=== PATIENT | male | born 1960 | race Caucasian/White ===

== ENCOUNTER 2018-01-08 19:35 | Emergency (ER) | payer SELFPAY ==
[~2018-01-08] VITALS: Ht 185.4 cm; Wt 113.4 kg
[2018-01-08] MEDS ORDERED: Tranexamic Acid(Epistaxis Use) TOPIC ONE ×2 (19:45)
[2018-01-08 20:00] VITALS: BP 126/79
--- NOTE | 2018-01-08 20:02 | Emergency Room Report ---
History of Present Illness General Chief Complaint: Nosebleed Source: Patient Present Illness HPI Patient 57-year-old male who presented after increased nasal bleeding. Patient reports having a right-sided nasal bleeding which began after blowing his nose. He reports having prior history of nosebleeds as a child but has not had any for many years. He reports taking aspirin intermittently. He denies any anticoagulant use. He denies feeling dizzy or lightheaded. He denies other locations of bleeding. The patient onset of symptoms approximately 4 PM. Patient had attempted to apply pressure without any resolution. Allergies: Coded Allergies: No Known Allergies (Unverified , 01/08/18) Patient History Past Medical History: see triage record Reviewed Nursing Documentation: PMH: Agreed; PSxH: Agreed Nursing Documentation-PMH Past Medical History: No Stated History Review of Systems All Other Systems: negative except mentioned in HPI Physical Exam Vital Signs Date Time Temp Pulse Resp B/P (MAP) Pulse Ox O2 Delivery O2 Flow Rate FiO2 01/08/18 19:36 98.1 90 18 126/79 96 Room Air Sp02 EP Interpretation: reviewed, normal General Appearance: normal inspection, well appearing, no apparent distress, alert, GCS 15 Head: atraumatic ENT: normal ENT inspection, hearing grossly normal, normal voice, other - anterior nasal bleeding to septum of right nare Neck: normal inspection, full range of motion, supple, no bony tend Respiratory: normal inspection, lungs clear, normal breath sounds, no respiratory distress, no retraction, no wheezing Cardiovascular #1: regular rate, rhythm, no edema Gastrointestinal: normal inspection, normal bowel sounds, non tender, soft, no guarding, no hernia Genitourinary: no CVA tenderness Musculoskeletal: normal inspection, back normal, normal range of motion Neurologic: normal inspection, alert, responsive, speech normal Psychiatric: normal inspection, judgement/insight normal, mood/affect normal Skin: normal inspection, normal color, no rash Medical Decision Making Diagnostic Impression: Primary Impression: Epistaxis ER Course Patient presented for nosebleed. Differential diagnosis included was not limited to anemia, coagulopathy, posterior epistaxis, among others.Because of complexity of patient's case laboratory testing and imaging studies were ordered. Patient was noted to have the initial bleeding for several hours. The patient was noted to have some improvement after internasal TXA. The patient continued to have some bleeding and a anterior nasal pack was placed in the right naris. The patient was noted to have the minimal bleeding subsequently. The patient was observed in the emergency department and had no recurrence of bleeding. The patient given prescription for antibiotics. He is advised to recheck for packing removal. Labs Test 01/08/18 20:15 White Blood Count 11.5 K/UL (4.8-10.8) Red Blood Count 4.87 M/UL (4.70-6.10) Hemoglobin 16.4 G/DL (14.2-18.0) Hematocrit 44.2 % (42.0-52.0) Mean Corpuscular Volume 91 FL (80-99) Mean Corpuscular Hemoglobin 33.8 PG (27.0-31.0) Mean Corpuscular Hemoglobin Concent 37.2 G/DL (32.0-36.0) Red Cell Distribution Width 10.5 % (11.6-14.8) Platelet Count 223 K/UL (150-450) Mean Platelet Volume 7.2 FL (6.5-10.1) Neutrophils (%) (Auto) 74.2 % (45.0-75.0) Lymphocytes (%) (Auto) 14.4 % (20.0-45.0) Monocytes (%) (Auto) 8.6 % (1.0-10.0) Eosinophils (%) (Auto) 1.3 % (0.0-3.0) Basophils (%) (Auto) 1.5 % (0.0-2.0) Prothrombin Time 11.3 SEC (9.30-11.50) Prothromb Time International Ratio 1.1 (0.9-1.1) Activated Partial Thromboplast Time 27 SEC (23-33) Sodium Level 141 MMOL/L (136-145) Potassium Level 4.3 MMOL/L (3.5-5.1) Chloride Level 105 MMOL/L (98-107) Carbon Dioxide Level 28 MMOL/L (21-32) Anion Gap 8 mmol/L (5-15) Blood Urea Nitrogen 26 mg/dL (7-18) Creatinine 1.1 MG/DL (0.55-1.30) Estimat Glomerular Filtration Rate > 60 mL/min (>60) Glucose Level 148 MG/DL (74-106) Calcium Level 8.9 MG/DL (8.5-10.1) Total Bilirubin 0.5 MG/DL (0.2-1.0) Aspartate Amino Transf (AST/SGOT) 24 U/L (15-37) Alanine Aminotransferase (ALT/SGPT) 46 U/L (12-78) Alkaline Phosphatase 75 U/L (46-116) Total Protein 7.8 G/DL (6.4-8.2) Albumin 3.9 G/DL (3.4-5.0) Globulin 3.9 g/dL Albumin/Globulin Ratio 1.0 (1.0-2.7) Last Vital Signs Date Time Temp Pulse Resp B/P (MAP) Pulse Ox O2 Delivery O2 Flow Rate FiO2 01/08/18 19:36 98.1 90 18 126/79 96 Room Air Status: improved Disposition: HOME, SELF-CARE Condition: Stable Scripts Amoxicillin (AMOXICILLIN) 500 Mg Tablet 500 MG PO THREE TIMES A DAY, #21 TAB Prov: Lion Tim MD 01/08/18 Lion Tim MD Jan 08, 2018 20:02
[2018-01-08 20:39] LABS: ANION GAP 8 mmol/L (5-15); BLOOD UREA NITROGEN 26 mg/dL (7-18); CALCIUM 8.9 MG/DL (8.5-10.1); CARBON DIOXIDE 28 MMOL/L (21-32); CHLORIDE 105 MMOL/L (98-107); CREATININE 1.1 MG/DL (0.55-1.30); POTASSIUM 4.3 MMOL/L (3.5-5.1); SODIUM 141 MMOL/L (136-145)
[2018-01-08 20:44] LABS: ALANINE AMINOTRANSFERASE 46 U/L (12-78); ALBUMIN 3.9 G/DL (3.4-5.0); ALKALINE PHOSPHATASE 75 U/L (46-116); ASPARTATE AMINO TRANSFERASE 24 U/L (15-37); BILIRUBIN,TOTAL 0.5 MG/DL (0.2-1.0)
[2018-01-08 20:52] LABS: BASOPHILS % (AUTO) 1.5 % (0.0-2.0); EOSINOPHILS % (AUTO) 1.3 % (0.0-3.0); HEMATOCRIT 44.2 % (42.0-52.0); HEMOGLOBIN 16.4 G/DL (14.2-18.0); LYMPHOCYTES % (AUTO) 14.4 % (20.0-45.0); MEAN CORPUSCULAR VOLUME 91 FL (80-99); MONOCYTES % (AUTO) 8.6 % (1.0-10.0); NEUTROPHILS % (AUTO) 74.2 % (45.0-75.0); PLATELET COUNT 223 K/UL (150-450); RED BLOOD COUNT 4.87 M/UL (4.70-6.10); RED CELL DISTRIBUTION WIDTH 10.5 % (11.6-14.8); WHITE BLOOD COUNT 11.5 K/UL (4.8-10.8)
[2018-01-08 20:59] LABS: INR 1.1 (0.9-1.1)
[2018-01-08] MEDS ORDERED: AMOXICILLIN500 M1 PO (21:01)
[2018-01-08 21:38] VITALS: BP 149/90
== END 2018-01-08 21:08 | disposition home or self-care (01) ==
LOC: EMR 20:08
DX: R04.0 Epistaxis (principal)
CPT/HCPCS: 36415; 80053; 85025; 85610; 85730; 99284

== ENCOUNTER 2018-01-10 07:43 | Emergency (ER) | payer BC ==
[~2018-01-10] VITALS: Ht 185.4 cm; Wt 108.9 kg
[~2018-01-10 07:43] MED LIST: AMOXICILLIN500 M1 PO
[2018-01-10 07:58] VITALS: BP 136/93
[2018-01-10 08:19] VITALS: BP 136/93
--- NOTE | 2018-01-10 11:35 | Emergency Room Report ---
History of Present Illness General Chief Complaint: Nosebleed Source: Patient Present Illness HPI 57-year-old male presents ED for evaluation. Patient is here for nasal packing removal. Episode of epistaxis was seen in ER on 01/07. Rhino Rocket was placed in right nostril and patient was discharged with amoxicillin. Patient states he is continuing the medications as directed. Denies any repeat epistaxis. States that the area is very dry and he often uses nasal saline spray. Denies using blood thinners. Denies any pain. Denies any fevers or chills. No other aggravating relieving factors. Denies any other associated symptoms Allergies: Coded Allergies: No Known Allergies (Unverified , 01/08/18) Patient History Past Medical History: none Past Surgical History: none Pertinent Family History: none Social History: Denies: smoking, alcohol use, drug use Immunizations: UTD Reviewed Nursing Documentation: PMH: Agreed; PSxH: Agreed Nursing Documentation-PMH Past Medical History: No Stated History Review of Systems All Other Systems: negative except mentioned in HPI Physical Exam Vital Signs Date Time Temp Pulse Resp B/P (MAP) Pulse Ox O2 Delivery O2 Flow Rate FiO2 01/10/18 07:49 97.5 91 20 136/93 98 Room Air Sp02 EP Interpretation: reviewed, normal General Appearance: no apparent distress, alert, GCS 15, non-toxic Head: normocephalic Eyes: bilateral eye normal inspection, bilateral eye PERRL ENT: hearing grossly normal, normal pharynx, no angioedema, normal voice, other - R nares, dried blood. no active bleeding Neck: normal inspection Respiratory: normal inspection Cardiovascular #1: normal inspection Gastrointestinal: normal inspection Rectal: deferred Genitourinary: no CVA tenderness Musculoskeletal: normal inspection Neurologic: alert, oriented x3, responsive, motor strength/tone normal, sensory intact, speech normal Psychiatric: judgement/insight normal, memory normal, mood/affect normal, no suicidal/homicidal ideation Skin: normal inspection Lymphatic: normal inspection Medical Decision Making Diagnostic Impression: Primary Impression: Encounter for removal of nasal packing ER Course Hospital Course 57 yo M presents for nasal packing removal. s/p epistaxis Clinical course Patient placed on stretcher. After initial history and physical I remove nasal packing from the right nostril. There appears to be no active bleeding. Only dried blood. No obvious source of bleeding on examination. Discussed findings with patient. Encouraged use of nasal saline sprays. Recommend that he continue antibiotics as prescribed. We'll provide ENT referral. Patient states he is moving back to [facility] soon will follow -up with his doctor there Diagnosis - encounter for removal of nasal packing Stable and discharged to home. continue abx as directed. Followup with PMD/ENT. Return to ED if symptoms recur or worsen Last Vital Signs Date Time Temp Pulse Resp B/P (MAP) Pulse Ox O2 Delivery O2 Flow Rate FiO2 01/10/18 08:19 97.5 91 20 136/93 98 Room Air Status: improved Disposition: HOME, SELF-CARE Condition: Stable Referrals: Pérez Aleman MD NOT CHOSEN IPA/,REFERRING (PCP) Patient Instructions: Nosebleed, [id number] Vishal Kwon MD Jan 10, 2018 11:35
== END 2018-01-10 08:19 | disposition home or self-care (01) ==
LOC: EMR 08:06
DX: Z48.00 Encounter for change or removal of nonsurgical wound dressing (principal); R04.0 Epistaxis
CPT/HCPCS: 99283